=== PATIENT | male | born 1990 | race Caucasian/White ===

== ENCOUNTER 2016-08-13 20:43 | Emergency (ER) | payer SELFPAY ==
[~2016-08-13] VITALS: Ht 160 cm; Wt 79.1 kg
[2016-08-13] MEDS ORDERED: SODIUM CHLORIDE FLUSH 10ML SYR IVF ONE (21:30)
[2016-08-13] MEDS ORDERED: SODIUM CHLORIDE 0.9% 1,000ML IVBOLUS ONE (21:30)
[2016-08-13] MEDS ORDERED: ONDANSETRON 2MG/ML, 2ML IVPush ONE (21:30)
[2016-08-13] MEDS ORDERED: MORPHINE SULFATE 4 MG/ML, 1ML IVPush PRN (21:30)
[2016-08-13 21:57] LABS: ASPARTATE AMINO TRANSFERASE 23 U/L (15-37); BLOOD UREA NITROGEN 13 mg/dL (7-18)
[2016-08-13] MEDS ORDERED: ONDANSETRON 2MG/ML, 2ML ONE (21:59)
[2016-08-13] MEDS ORDERED: MORPHINE SULFATE 4 MG/ML, 1ML ONE (21:59)
[2016-08-13] MEDS ORDERED: OMNIPAQUE 350 MG/ML, 100ML BOTTLE ONE (22:33)
[2016-08-14 00:55] VITALS: BP 124/74
== END 2016-08-14 00:58 | disposition home or self-care (01) ==
LOC: ED 23:59
DX: K52.9 Noninfective gastroenteritis and colitis, unspecified (principal); R10.32 Left lower quadrant pain; R10.12 Left upper quadrant pain; R11.2 Nausea with vomiting, unspecified
CPT/HCPCS: 36415; 74177; 80053; 81003; 83690; 85025; 96361; 96374; 96375; 99285; J2405; J7030; Q9967

== ENCOUNTER 2019-02-15 21:38 | Emergency (ER) | payer SELFPAY ==
[~2019-02-15] VITALS: Ht 162.6 cm; Wt 79.1 kg
--- NOTE | 2019-02-15 21:57 | NUR ---
pt called to room from lobby
[2019-02-15] MEDS ORDERED: ACETAMINOPHEN 500 MG TABLET ONE (22:25)
[2019-02-15] MEDS ORDERED: IBUPROFEN 600 MG TABLET ONE (22:25)
[2019-02-15] MEDS ORDERED: ACETAMINOPHEN 500 MG TABLET PO ONE (22:30)
[2019-02-15] MEDS ORDERED: IBUPROFEN 600 MG TABLET PO ONE (22:30)
--- NOTE | 2019-02-15 22:34 | NUR ---
PT HERE FOR ELEVATED TEMP AT HOME AND BODY ACHES. PT DENIES CP. PT REPORTS BEING ILL FOR 2 DAYS. VACCINATIONS UP TO DATE. PT RESTING IN ROOM AND MEDICATED PER EMAR.
[2019-02-15 23:12] LABS: RAPID INFLUENZA A Negative (Negative); RAPID INFLUENZA B Negative (Negative)
--- NOTE | 2019-02-15 23:12 | NUR ---
PT STRIPPED DOWN TO REDUCE BODY TEMP. PT CONNECTED TO ALL MONITORS.
--- NOTE | 2019-02-16 00:25 | NUR ---
REPORT FROM DHARMESH LINDA CARE OF PT
--- NOTE | 2019-02-16 00:27 | NUR ---
REPORT TO VANCE HUTCHINSON
[2019-02-16 01:11] VITALS: BP 131/74
== END 2019-02-16 01:22 | disposition home or self-care (01) ==
LOC: ED 02-16 01:16
DX: R50.9 Fever, unspecified (principal); R19.7 Diarrhea, unspecified; R51 Headache; M79.10 Myalgia, unspecified site
CPT/HCPCS: 87400; 99283

== ENCOUNTER 2019-02-19 22:16 | Emergency (ER) | payer SELFPAY ==
[~2019-02-19] VITALS: Ht 165.1 cm; Wt 79.4 kg
--- NOTE | 2019-02-19 23:09 | NUR ---
PT UP TO RR, PROVIDED PT WITH URINE CUP FOR SAMPLE
[2019-02-19 23:12] LABS: BASOPHILS # (AUTO) 0.02 x10^3/uL (0-0.1); BASOPHILS % (AUTO) 0 % (0-1); EOSINOPHILS # (AUTO) 0.05 x10^3/uL (0-0.4); EOSINOPHILS % (AUTO) 1 % (1-7); LYMPHOCYTES # (AUTO) 2.23 x10^3/uL (1-3.4); LYMPHOCYTES % (AUTO) 55 % (22-44); MD NO; MEAN CORPUSCULAR HEMOGLOBIN 29.3 pg (27.5-34.5); MEAN CORPUSCULAR HGB CONC 33.5 g/dL (33.2-36.2); MEAN CORPUSCULAR VOLUME 87.5 fL (81-97); MEAN PLATELET VOLUME 8.2 fL (7.4-10.4); MONOCYTES # (AUTO) 0.33 x10^3/uL (0.2-0.8); MONOCYTES % (AUTO) 8 % (2-9); NEUTROPHILS # (AUTO) 1.46 x10^3/uL (1.8-6.8); NEUTROPHILS % (AUTO) 36 % (42-75); PLATELET COUNT 125 x10^3/uL (130-400); RED BLOOD COUNT 5.13 x10^6/uL (4.38-5.82); RED CELL DISTRIBUTION WIDTH 13.5 % (9.4-14.8)
--- NOTE | 2019-02-19 23:12 | NUR ---
URINE SAMPLE SENT
[2019-02-19 23:19] LABS: ALBUMIN 3.4 g/dL (3.4-5.0); ANION GAP 5 mmol/L (5-15); CALCIUM 8.4 mg/dL (8.5-10.1); CHLORIDE 106 mmol/L (98-107)
[2019-02-19 23:21] LABS: MICROSCOPIC NOT IND
[2019-02-19 23:23] LABS: ALANINE AMINOTRANSFERASE 262 U/L (12-78); ALKALINE PHOSPHATASE 224 U/L (45-117); BILIRUBIN,TOTAL 2.7 mg/dL (0.2-1.0); CREATININE 1.02 mg/dL (0.7-1.3); TOTAL PROTEIN 7.7 g/dL (6.4-8.2)
[2019-02-19 23:29] LABS: CULTURE INDICATED? NO
--- NOTE | 2019-02-19 23:58 | NUR ---
PT TO ULTRASOUND
--- NOTE | 2019-02-20 00:14 | NUR ---
Break RN: patient back from ultrasound.awaiting result.
--- NOTE | 2019-02-20 00:37 | NUR ---
ERP at bedside for re-evaluation.
[2019-02-20 01:00] VITALS: BP 126/74
== END 2019-02-20 01:04 | disposition home or self-care (01) ==
LOC: ED 23:17
DX: K29.00 Acute gastritis without bleeding (principal); R05 Cough; R42 Dizziness and giddiness; Z88.6 Allergy status to analgesic agent
CPT/HCPCS: 36415; 71046; 76700; 80053; 81003; 83690; 85025; 99284

== ENCOUNTER 2019-09-21 22:43 | Emergency (ER) | payer SELFPAY ==
[~2019-09-21] VITALS: Ht 154.9 cm; Wt 78.0 kg
[2019-09-21 22:45] VITALS: BP 144/75
--- NOTE | 2019-09-21 23:04 | NUR ---
PT DRESSED IN GOWN, ATTACHED TO MONITORS, PROVIDED WITH BLANKET. ERP AT BEDSIDE FOR ASSESSMENT. PT DENIES ANY NEEDS OR CONCERNS. CALL LIGHT IN REACH.
== END 2019-09-22 00:14 | disposition home or self-care (01) ==
LOC: ED 23:22
DX: U07.1 COVID-19 (principal)
CPT/HCPCS: 71045; 93005; 99284; U0001

== ENCOUNTER 2019-11-08 21:55 | Emergency (ER) | payer MEDICAID ==
[~2019-11-08] VITALS: Ht 160 cm; Wt 78.2 kg
[2019-11-08 21:59] VITALS: BP 149/90
[2019-11-08 23:00] LABS: ANION GAP 8 mmol/L (5-15); BASOPHILS # (AUTO) 0.02 x10^3/uL (0-0.1); BASOPHILS % (AUTO) 0 % (0-1); CALCIUM 8.9 mg/dL (8.5-10.1); CHLORIDE 107 mmol/L (98-107); CREATININE 1.05 mg/dL (0.7-1.3); EOSINOPHILS # (AUTO) 0.09 x10^3/uL (0-0.4); EOSINOPHILS % (AUTO) 2 % (1-7); LYMPHOCYTES # (AUTO) 2.06 x10^3/uL (1-3.4); LYMPHOCYTES % (AUTO) 44 % (22-44); MD NO; MEAN CORPUSCULAR HEMOGLOBIN 29.4 pg (27.5-34.5); MEAN CORPUSCULAR HGB CONC 33.5 g/dL (33.2-36.2); MEAN CORPUSCULAR VOLUME 87.8 fL (81-97); MEAN PLATELET VOLUME 7.4 fL (7.4-10.4); MONOCYTES # (AUTO) 0.32 x10^3/uL (0.2-0.8); MONOCYTES % (AUTO) 7 % (2-9); NEUTROPHILS # (AUTO) 2.21 x10^3/uL (1.8-6.8); NEUTROPHILS % (AUTO) 47 % (42-75); PLATELET COUNT 255 x10^3/uL (130-400); RED BLOOD COUNT 5.26 x10^6/uL (4.38-5.82); RED CELL DISTRIBUTION WIDTH 14.3 % (9.4-14.8)
[2019-11-08 23:04] LABS: TROPONIN I < 0.015 ng/mL (0.000-0.045)
== END 2019-11-08 23:42 | disposition home or self-care (01) ==
LOC: ED 22:56
DX: M79.10 Myalgia, unspecified site (principal); R07.9 Chest pain, unspecified
CPT/HCPCS: 36415; 71045; 80048; 82040; 84484; 85025; 99284

== ENCOUNTER 2020-05-22 21:23 | Emergency (ER) | payer MEDICAID ==
[~2020-05-22] VITALS: Ht 154.9 cm; Wt 75.0 kg
[2020-05-22 21:28] VITALS: BP 123/76
--- NOTE | 2020-05-22 21:34 | NUR ---
INITIAL PT CONTACT. PT PRESENTS TO ED C/O INGROWN TOE NAIL ON BOTH BIG TOES X 2 DAYS. PT STATES "I CUT MY NAIL ON THE SIDES AND NOW THEY ARE INGROWN". PT HAS HX OF SAME. PT SITTING UPRIGHT ON EMILY GREEN VSS. SPOUSE AT BEDSIDE. ERP AT BEDSIDE
[2020-05-22] MEDS ORDERED: LIDOCAINE-MPF 1%, 5ML ONE ×2 (21:46→22:20)
--- NOTE | 2020-05-22 22:15 | NUR ---
ERP AT BEDSIDE
[2020-05-22] MEDS ORDERED: NEOSPORIN OINT. PKT 1 PACKET ONE (22:50)
[2020-05-22] MEDS ORDERED: LIDOCAINE 1%, 10ML INFIL ONE (23:00)
--- NOTE | 2020-05-22 23:04 | NUR ---
BILAT GREAT TOES DRESSED WITH ABX OINTMENT, ADAPTIC, TELFA/NON STICK DRESSING AND GAUZE. PT TOLERATED WELL. PT DENIES ANY ADDITIONAL NEEDS. AWAITING D/C.
--- NOTE | 2020-05-22 23:10 | NUR ---
Patient given discharge instructions and they have confirmed that they understand the instructions. Patient ambulatory with steady gait.
== END 2020-05-22 23:12 | disposition home or self-care (01) ==
LOC: ED 23:00
DX: L60.0 Ingrowing nail (principal); L03.032 Cellulitis of left toe
CPT/HCPCS: 11730; 99284